=== PATIENT | male | born 1945 | race Caucasian/White ===

== ENCOUNTER 2017-01-21 11:27 | Outpatient (CLI) | payer OTHER ==
[2017-01-21] MEDS ORDERED: PROPOFOL/EMULSION 500 MG/50 ML BOTTLE IV ONE (11:51)
[2017-01-21] MEDS ORDERED: MIDAZOLAM 2 MG/2 ML VIAL ONE (11:51)
[2017-01-21] MEDS ORDERED: PROPOFOL 200 MG/20 ML VIAL ONE (11:51)
[2017-01-21] MEDS ORDERED: NALOXONE HCL 0.4 MG/ML INJ IVP PRN (14:54)
--- NOTE | 2017-01-21 14:54 | POSTANESTH ---
Post Anesthetic Evaluation Cardiovascular Status: Normal, Stable Level of Consciousness/Mental Status: Can Participate in Eval Pain Control: Adequate, Prn Tx Ordered Nausea/Vomiting Control: Adequate, Prn Tx Ordered Complications Possibly Related to Anesthesia: None Noted
[2017-01-21 15:18] VITALS: BP 142/80; O2SAT 91
[2017-01-21 15:19] VITALS: TEMP 97
[2017-01-21 16:13] VITALS: RESP 16
== END 2017-01-21 15:55 | disposition home or self-care (01) ==
LOC: FIMAGING 11:27
PROVIDERS: ATTEND Neurological Surgery
DX: M48.02 Spinal stenosis, cervical region (principal); G95.20 Unspecified cord compression; M50.81 Other cervical disc disorders, high cervical region; M47.26 Other spondylosis with radiculopathy, lumbar region; M46.97 Unspecified inflammatory spondylopathy, lumbosacral region; M51.17 Intervertebral disc disorders with radiculopathy, lumbosacral region; M46.96 Unspecified inflammatory spondylopathy, lumbar region
CPT/HCPCS: 72141; 72148; J2250; J2704

== ENCOUNTER 2017-03-10 07:25 | Observation (INO) | payer OTHER ==
--- NOTE | 2017-03-04 17:57 | GHP ---
[f rep st] HISTORY AND PHYSICAL DATE OF ADMISSION: 03/10/2017 HISTORY OF PRESENT ILLNESS: The patient is a 71-year-old male with constant neck pain. His neck di n is constant in nature and is increasing in intensity and severity. He has unsteadiness in ambulati ng, described as a drunk walk. He admits to urinary urgency and increased frequency. He has difficu lty sleeping at night due to the severity of his neck pain. He has tried heat, physical therapy, dry needling, steroid and NSAIDs without long-term relief. He has bilateral forearm numbness that began following a nerve block from a left shoulder surgery 7 years ago. He denies dropping objects. Admi ts to left lateral leg numbness, worse with ambulating, better with sitting and resting, improves whe n using a grocery cart. PAST MEDICAL HISTORY: Unremarkable. PAST SURGICAL HISTORY: Left rotator cuff repair, right upper lobectomy. FAMILY HISTORY: No pertinent neurosurgical family history. SOCIAL HISTORY: Admits to alcohol use with 1-2 beers daily. Admits to being a former smoker. He qu it 27 years ago. He did smoke 2 packs per day for 25 years. ALLERGIES: Latex. CURRENT MEDICATIONS: Nexium, amlodipine, lisinopril, atorvastatin, aspirin. REVIEW OF SYSTEMS: Negative except for HPI. PHYSICAL EXAM: Patient seen and examined, appears to be in no apparent distress. Mood and affect ar e appropriate. Alert and oriented. Pupils are equal and reactive. Extraocular movements are intact . Facial expression is symmetrical. Tongue is midline with protrusion. Hearing is grossly intact. Speech is fluent without any dysarthria. Muscle strength is well preserved in his upper and lower e xtremities. He has brisk reflexes and clonus on exam. ASSESSMENT AND PLAN: In summary, the patient is a 71-year-old male with neck pain, balance difficult ies, and upper extremity numbness. He has an MRI of the cervical spine that demonstrates severe cent ral canal narrowing and cord compression at the C3-4 level due to a diffuse broad-based disk bulge an d ligamentum flavum thickening. No cord edema or gliosis. Mild multilevel degenerative disk and fac et arthropathy. 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 We recommend surgical intervention given the degree of cord compression with an anterior cervical diskectomy and fusion at C3-4. The risks, benefits, proc edure and recovery process were discussed in detail. He will be in a soft collar following surgery f or approximately 6 weeks. He has elected to proceed with surgery and has signed consent. All questi ons and concerns were addressed and answered. /[id number]/MODL
[2017-03-10] MEDS ORDERED: ceFAZolin 2 GM/SWFI 2 GM/20 ML SYR IVP ONE (08:00)
[2017-03-10] MEDS ORDERED: ACETAMINOPHEN 500 MG TAB PO ONE (08:09)
[2017-03-10] MEDS ORDERED: LR 1,000 ML IV ONE (08:10)
[2017-03-10] MEDS ORDERED: SURGIFLO MATRIX KIT WITH THROMBIN 8ml TP ONE ×2 (08:32→11:47)
[2017-03-10] MEDS ORDERED: THROMBIN (BOVINE) 5,000 UNIT VIAL TP ONE (08:32)
[2017-03-10] MEDS ORDERED: CHLORHEXIDINE GLUC HIBICLENS 118 ML BTL TP ONE ×2 (08:32→09:50)
[2017-03-10] MEDS ORDERED: BUPIVACAINE 0.25% 30 ML SDV ONE (08:32)
[2017-03-10] MEDS ORDERED: BACITRACIN 50,000 UNITS/10 ML SYR IRR ONE (08:33)
--- NOTE | 2017-03-10 09:40 | PDHPUP ---
History & Physical Update H&P update statement: This history and physical update is based on an assessment of the patient which was completed after admission or registration (within 24 hours), but prior to the surgery/procedure. H&P update: H&P reviewed & patient examined, no change in patient's condition since H&P completed
[2017-03-10] MEDS ORDERED: MIDAZOLAM 2 MG/2 ML VIAL IVP ONE (09:45)
--- NOTE | 2017-03-10 09:47 | PDANEPAE ---
ANE History of Present Illness Patient presents for ACDF ANE Past Medical History - Cardiovascular History Hx Hypertension: Yes Hx Arrhythmias: No Hx Chest Pain: No Hx Coronary Artery / Peripheral Vascular Disease: No Hx CHF / Valvular Disease: No Hx Palpitations: No - Pulmonary History Hx COPD: No Hx Asthma/Reactive Airway Disease: No Hx Recent Upper Respiratory Infection: No Hx Oxygen in Use at Home: No Hx Sleep Apnea: No Sleep Apnea Screening Result - Last Documented: Positive Pulmonary History Comment: denies SOB-stage 1 lung CA - Neurologic History Hx Cerebrovascular Accident: No Hx Seizures: No Hx Dementia: No - Endocrine History Hx Diabetes: No - Renal History Hx Renal Disorders: No - Liver History Hx Hepatic Disorders: No - Neurological & Psychiatric Hx Hx Neurological and Psychiatric Disorders: No Neurological / Psychiatric History Comment: leg numbness since 10-19, chronic neck pain. Cervical stenosis w/myelopathy. Tingling, sl numbness-bilat forearms. - Cancer History Hx Cancer: Yes Cancer History Comment: Lung cancer - Congenital Disorder History Hx Congenital Disorders: No - GI History Hx Gastrointestinal Disorders: No Gastrointestinal History Comment: GERD-on Rx - Other Health History Other Health History: none - Chronic Pain History Chronic Pain: No - Surgical History Prior Surgeries: Lobectomy-2009. rotator cuff surgery- 2009. left thumb surgery-2013 ANE Review of Systems Review of Systems: - Exercise capacity METS (RN): 4 METS ANE Patient History - Allergies Allergies/Adverse Reactions: adhesive tape Allergy (Verified 03/08/17 15:51) Rash latex Allergy (Verified 03/10/17 08:55) CLEAR TAPE Allergy (Uncoded 03/08/17 15:51) Rash - Home Medications Home medications: home medication list seen and reviewed Home Medications: Aspirin [Aspirin 81mg (*)] 81 mg PO HS 01/18/17 [Last Taken 02/28/17 21:00] Atorvastatin Calcium [Lipitor 10 mg (*)] 10 mg PO HS 01/18/17 [Last Taken 21:00] Esomeprazole Magnesium [Nexium] 20 mg PO HS 01/18/17 [Last Taken 03/09/17 21:00] Lisinopril [Zestril 10 mg (*)] 10 mg PO HS 01/18/17 [Last Taken 03/09/17 21:00] amLODIPine BESYLATE [Norvasc 10 mg (*)] 10 mg PO HS 01/18/17 [Last Taken 21:00] - NPO status NPO Status: no food or drink >8 hours NPO Since - Liquids (Date): 03/09/17 NPO Since - Liquids (Time): 04:00 NPO Since - Solids (Date): 03/09/17 NPO Since - Solids (Time): 21:00 - Anes Hx Anes Hx: no prior problems - Smoking Hx Smoking Status: Never smoked - Family Anes Hx Family Hx Anesthesia Complications: None ANE Labs/Vital Signs - Vital Signs Blood Pressure: 158/84 Heart Rate: 80 Respiratory Rate: 16 O2 Sat (%): 98 Height: 182.88 cm Weight: 96.162 kg ANE Physical Exam - Airway Neck exam: decreased ROM Mallampati Score: Class 2 Mouth exam: normal dental/mouth exam - Pulmonary Pulmonary: no respiratory distress - Cardiovascular Cardiovascular: regular rate and rhythym - ASA Status ASA Status: II ANE Anesthesia Plan Anesthesia Plan: general endotracheal anesthesia Specialized Airway: video laryngoscope (RBA discussed)
[2017-03-10] MEDS ORDERED: MIDAZOLAM 2 MG/2 ML VIAL ONE (09:49)
[2017-03-10] MEDS ORDERED: PROPOFOL 200 MG/20 ML VIAL ONE (09:51)
[2017-03-10] MEDS ORDERED: fentaNYL 100 MCG/2 ML INJ ONE ×3 (09:51→13:49)
[2017-03-10] MEDS ORDERED: REMIFENTANIL HCL 1 MG VIAL ONE ×2 (09:51→11:46)
[2017-03-10] MEDS ORDERED: PROPOFOL/EMULSION 500 MG/50 ML BOTTLE IV ONE ×2 (09:51→11:51)
[2017-03-10] MEDS ORDERED: ROCURONIUM 50 MG/5 ML VIAL ONE (10:59)
[2017-03-10] MEDS ORDERED: DEXAMETHASONE 4 MG/ML VIAL ONE (10:59)
[2017-03-10] MEDS ORDERED: ONDANSETRON 4 MG/2 ML VIAL ONE (10:59)
[2017-03-10] MEDS ORDERED: LIDOCAINE 2% 5 ML SDV ONE (10:59)
[2017-03-10] MEDS ORDERED: SUGAMMADEX SODIUM 200 MG/2 ML VIAL IVP ONE (12:30)
[2017-03-10] MEDS ORDERED: fentaNYL 100 MCG/2 ML INJ IVP PRN (12:33)
[2017-03-10] MEDS ORDERED: ONDANSETRON 4 MG/2 ML VIAL IVP PRN ×2 (12:33→12:49)
[2017-03-10] MEDS ORDERED: NALOXONE HCL 0.4 MG/ML INJ IVP PRN (12:33)
[2017-03-10] MEDS ORDERED: OXYCODONE/APAP 5/325 TAB PO PRN (12:33)
[2017-03-10] MEDS ORDERED: HYDROCODONE/APAP 5/325 TAB PO PRN ×2 (12:33→12:51)
[2017-03-10] MEDS ORDERED: HYDROmorphONE/DILAUDID 1 MG/ML INJ IVP PRN (12:33)
[2017-03-10] MEDS ORDERED: LR 500 ML IV PRN (12:33)
[2017-03-10] MEDS ORDERED: MAGNESIUM HYDROXIDE 30 ML UDCUP PO PRN (12:49)
[2017-03-10] MEDS ORDERED: LACTULOSE 20 GM/30 ML UDCUP PO PRN (12:49)
[2017-03-10] MEDS ORDERED: BISACODYL 10 MG SUPP PR PRN (12:49)
[2017-03-10] MEDS ORDERED: POLYETHYLENE GLYCOL 3350 17 GM PKT PO PRN (12:49)
[2017-03-10] MEDS ORDERED: diphenhydrAMINE 25 MG CAP PO PRN (12:49)
[2017-03-10] MEDS ORDERED: ONDANSETRON DISINTEGRATING 4 MG TAB PO PRN (12:49)
[2017-03-10] MEDS ORDERED: NS W/ 20 KCl/L 1,000 ML IV SCH (13:00)
--- NOTE | 2017-03-10 13:21 | POSTOPPROG ---
Post Op Note Date of Operation: 03/10/17 Surgeon: Ml Lay Engineering Program Manager: Lavern Hartley PA-C Anesthesiologist: Dr. Salazar Anesthesia: GET(General Endotracheal) Pre-op Diagnosis: Cervical stenosis Post-op Diagnosis: Cervical stenosis Procedure: Anterior cervical discectomy and fusion at C3/4 Inf/Abcess present in the surg proc area at time of surgery?: No Depth: Deep Incisional (Fascial) EBL: 50-100 Drains: Tan Zeng Plan Plan: 71 yo male s/p ACDF C3/4 - neuro checks - soft collar, may remove for showering - DAVID drain x 1 - pain control - PT/OT/ST - postop C-spine x-rays pending Exam Awake. Alert Muscle strength full at 5/5 Sensation intact Incision with dressing c/d/i
--- NOTE | 2017-03-10 13:23 | POSTANESTH ---
Post Anesthetic Evaluation Cardiovascular Status: Similar to Pre-Op Cond Respiratory Status: Similar to Pre-op Cond. Level of Consciousness/Mental Status: Can Participate in Eval Pain Control: Adequate, Prn Tx Ordered Nausea/Vomiting Control: Adequate, Prn Tx Ordered Complications Possibly Related to Anesthesia: None Noted
--- NOTE | 2017-03-10 13:29 | GOP ---
[f rep st] OPERATIVE REPORT DATE OF OPERATION: 03/10/2017 SURGEON: Ml Lay DO NEUROSURGEON: Ml Lay D.O. FLOOR TRADER: Kailyn Hartley P.A.-C. PREOPERATIVE DIAGNOSIS: 1. Cervical spondylitic myelopathy. 2. Cervical stenosis. POSTOPERATIVE DIAGNOSIS: 1. Cervical spondylitic myelopathy. 2. Cervical stenosis. PROCEDURE PERFORMED: 1. C3-C4 anterior cervical diskectomy. 2. C3-C4 anterior cervical interbody fusion with LDR KEDAR-C 9 x 14 x 15 mm graft. 3. Autograft, allograft, microscope, neuromonitoring. FINDINGS: SPECIMENS: None. ESTIMATED BLOOD LOSS: 30 mL. INDICATIONS: This is a 71-year-old male with cervical spondylitic myelopathy secondary to disk osteo phyte complex at C3-C4, who elected to move forward with anterior cervical diskectomy and fusion. DESCRIPTION OF PROCEDURE: He was identified and consented. Sites were marked. He was brought to [facility] operating room and anesthetized under general endotracheal anesthesia. Pre positioning and post po sitioning baselines were performed. The head was placed in a Garcia horseshoe to a neutral positio n. Incision site was marked using lateral x-ray. He was prepped and draped in the usual sterile fas hion. Incision was anesthetized with 0.25% Marcaine with epinephrine. Incision was made with a 10 blade. Hemostasis was obtained with bipolar cautery, dissecting through the platysma with Metzenbaum scissors in a horizontal fashion. We then came along the appropriate av ascular plane, retracting the trachea and esophagus medially, palpating the carotid artery, retractin g it laterally with handheld Cloward, coming down on the anterior aspect of the spine, clearing the p revertebral fascia with Kittners, placing a bayoneted spinal needle, taking an x-ray verifying where the appropriate position was, marked the disk space with Bovie and then measured and placed Shadow-Li ne retractors. We brought the microscope in after having placed Dingle pins, verifying they were in good position under x-ray and placing the patient under distraction. We then used the high-speed dri ll to remove the disk and cartilaginous endplate from the disk space, coming down on the posterior lo ngitudinal ligament which was opened with an F1 upgoing curette. This was extended. The PLL was rat her scarred in. However, we were able to create a plane and opened this with one Kerrison. Then, us ing the 2 Koros, removed the disk and osteophyte from the superior and inferior endplates and out rosario ateral lateral foramina until foraminal fat was visualized. The patient was well decompressed. We harvested autograft superiorly and inferiorly until we had bleeding bone. Measured a 9 x 14 x 15. 5 mm LDR KEDAR-C graft using the trials and took an x-ray to verify we were in the appropriate position . Packed the trial with DBM and the patient's own bone and tamped it into place. We removed the Tin par pin superiorly and inferiorly and packed the holes with Gelfoam bullets using the long wings. We used the 1 impactor. Verified the wing was in good position superiorly. We cold welded with the 1, cold welded with the 2. Placed a long wing inferiorly. Verified it was in good position. Cold wel ded with the 1, cold welded with the 2 impactor. Shaved off one small corner of the graft that was p rominent slightly anterior and then copiously irrigated with over a liter of gentamicin infused salin e. Trocar to drain out inferiorly placed in the prevertebral space after meticulous hemostasis had been obtained. Removed the retractors. Removed the microscope. Inspected the lutz on the way out. Deana sed the subcutaneous layer with 2-0 Vicryl pop-offs, cutaneous layer with 3-0 Vicryl pop-offs and the skin was closed with a 4-0 running Monocryl and Steri-Strips. Drain was sutured with a 2-0 Vicryl p op-off. Study drug was placed in the prevertebral space. The drain was not placed to bulb suction a nd will be placed to bulb suction in the PACU. Wound dressed with gauze and Tegaderm. Neuro monitoring was stable throughout. The patient tolerated the procedure well. FLUIDS REPLACED: 1 L crystalloid. URINE OUTPUT: None. DRAINS: One J-P in the prevertebral space to bulb suction. COMPLICATIONS: None. /[id number]/MODL
[2017-03-10] MEDS ORDERED: HYDROmorphONE/DILAUDID 1 MG/ML INJ ONE (13:55)
[2017-03-10] MEDS: ACETAMINOPHEN 500 MG TAB PO SCH ×2 (15:04→22:35)
[2017-03-10] MEDS: ceFAZolin 2 GM/DEXTROSE 100 ML IV SCH (17:47)
[2017-03-10] MEDS: CYCLOBENZAPRINE 10 MG TAB PO PRN (17:47)
[2017-03-10] MEDS ORDERED: PANTOPRAZOLE SODIUM 40 MG TAB PO SCH (21:00)
[2017-03-10] MEDS ORDERED: LISINOPRIL 10 MG TAB PO SCH (21:00)
[2017-03-10] MEDS ORDERED: ATORVASTATIN CALCIUM 10 MG TAB PO SCH (21:00)
[2017-03-10] MEDS: FAMOTIDINE 20 MG TAB PO SCH (22:38)
[2017-03-10] MEDS: SENNOSIDES/DOCUSATE SODIUM TAB PO SCH (22:39)
[2017-03-11] MEDS: CYCLOBENZAPRINE 10 MG TAB PO PRN (02:40)
[2017-03-11] MEDS: ceFAZolin 2 GM/DEXTROSE 100 ML IV SCH (02:40)
[2017-03-11 04:18] VITALS: O2SAT 94
[2017-03-11] MEDS: ACETAMINOPHEN 500 MG TAB PO SCH ×2 (05:35→10:28)
[2017-03-11 07:33] VITALS: BP 143/74; PULSE 81; RESP 16; TEMP 97.7
--- NOTE | 2017-03-11 08:25 | NEUSURGPN ---
Date of Surgery: 03/10/17 Post Op Day: 1 Assessment/Plan: 71 yo male s/p ACDF C3/4 POD#1 - soft collar, may remove for showering - Will dc DAVID today -Patient may dc home today after DAVID removed, evaluation by Speech Therapy and post op xrays complete - has prescriptions to fill - PT/OT/ST - postop C-spine x-rays pending -Dr Lay saw patient this morning as well Subjective: Patient doing well, denies any swallowing difficulties Objective: Awake. Alert Muscle strength full at 5/5 Sensation intact Incision with dressing c/d/i Neuro Check Frequency: per routine Urinary Catheter in Place: No - Physician Discussed Patient with : Rosanne Patient Seen by : Rosanne Neurosurgery Physical Exam - Vitals, I&O, Labs I and O 03/10/17 03/11/17 03/12/17 05:59 05:59 05:59 Intake Total 2270 400 Output Total 225 15 Balance 2045 385 Weight 96.162 kg Intake: Oral (ml) 770 400 IV Intake (ml) 1400 IV Infused (ml) 100 ceFAZolin 2 GM/DEXTROSE 100 100 ml @ 200 mls/hr IV Q8H CHRISTINE Rx#:[id number] Output: Urine (ml) 225 Toilet 225 DAVID Drain Output (ml) 15 #1 15 Other: Intake Quantity Yes Sufficient Number of Voids Toilet 1 Vital Signs Temp Pulse Resp BP Pulse Ox 36.5 C 81 16 143/74 H 94 03/11/17 07:32 03/11/17 07:32 03/11/17 07:32 03/11/17 07:32 03/11/17 07:32 ICD10 Worksheet Patient Problems: Problems Problem Status Onset Cervical spinal stenosis Acute - ICD10 Problem Qualifiers (1) Cervical spinal stenosis
[2017-03-11] MEDS: SENNOSIDES/DOCUSATE SODIUM TAB PO SCH (08:29)
[2017-03-11] MEDS: FAMOTIDINE 20 MG TAB PO SCH (08:29)
--- NOTE | 2017-03-11 10:28 | ASMTCMCOM ---
CM Note CM Note Notes: Pt medically stable for d/c, PT/OT/PRODUCTIVITY ENGINEER clear pt for home. No CM d/c needs identified. Date Signed: 03/11/2017 10:28 AM Electronically Signed By:JAQUI Steven
--- NOTE | 2017-03-11 11:23 | ASDISCHSUM ---
Discharge Information Plan Status:Home with No Needs Medically Cleared to Leave: Discharge Date:03/11/2017 11:15 AM D/C [facility]position:[facility] ADT D/C Disposition:Home, Routine, Self-Care Projected Discharge Date:03/11/2017 11:15 AM Transportation at D/C: Discharge Delay Reason: Follow-Up Date:03/11/2017 11:15 AM Discharge Slot: Final Diagnosis: Placement Information Patient Contact Information Contact Name:LAYO Relationship: Address:[address] City:[place] Phone: [facility]/Zip Code:[place] [address] Email: Financial Information Financial Class: Primary Plan Desc:MEDICARE OUTPATIENT Primary Plan Number:[id number] Secondary Plan Desc:JOAN Magdaleno [facility] Secondary Plan Number:[id number] Assessment Information [facility] CM Progress Note CM Note CM Note Notes: Pt medically stable for d/c, PT/OT/TAX EXAMINER clear pt for home. No CM d/c needs identified. Date Signed: 03/11/2017 10:28 AM Electronically Signed By:JAQUI Steven Intervention Information
[2017-03-13] MEDS ORDERED: ENOXAPARIN 40 MG/0.4 ML SYR SC SCH (09:00)
== END 2017-03-11 11:15 | disposition home or self-care (01) ==
LOC: F3N 07:25
PROVIDERS: ADMIT Neurological Surgery; ATTEND Neurological Surgery
PROC: 8E0WXBZ Computer Assisted Procedure of Trunk Region (ICD-10-PCS; principal; 2017-03-10 10:15)
PROC: 0RB10ZZ Excision of Cervical Vertebral Joint, Open Approach (ICD-10-PCS; principal; 2017-03-10 10:15)
PROC: 0RG1070 Fusion of Cervical Vertebral Joint with Autologous Tissue Substitute, Anterior Approach, Anterior Column, Open Approach (ICD-10-PCS; principal; 2017-03-10 10:15)
PROC: 4A10X4G Monitoring of Central Nervous Electrical Activity, Intraoperative, External Approach (ICD-10-PCS; principal; 2017-03-10 10:15)
PROC: 0RT30ZZ Resection of Cervical Vertebral Disc, Open Approach (ICD-10-PCS; principal; 2017-03-10 10:15)
DX: M47.12 Other spondylosis with myelopathy, cervical region (principal); M48.02 Spinal stenosis, cervical region; K21.9 Gastro-esophageal reflux disease without esophagitis; E78.5 Hyperlipidemia, unspecified; I10 Essential (primary) hypertension; N40.1 Benign prostatic hyperplasia with lower urinary tract symptoms; R39.15 Urgency of urination; R35.0 Frequency of micturition; Z85.118 Personal history of other malignant neoplasm of bronchus and lung; Z85.820 Personal history of malignant melanoma of skin; Z90.2 Acquired absence of lung [part of]; Z87.891 Personal history of nicotine dependence
CPT/HCPCS: 22551; 72040; 76001; 92610; 97161; 97165; C1713; G8978; G8979; G8980; G8987; G8988; G8989; G8996; G8997; J0171; J0690; J1100; J1170; J2250; J2405; J2704; J3010

== ENCOUNTER → 2017-04-20 | Outpatient (CLI) | payer OTHER | LOC: CIMAGING 07:55 | PROVIDERS: ATTEND Neurological Surgery | DX: M47.12 Other spondylosis with myelopathy, cervical region (principal) | CPT/HCPCS: 72040-PO ==

== ENCOUNTER → 2017-06-07 | Outpatient (CLI) | payer OTHER | LOC: CIMAGING 07:50 | PROVIDERS: ATTEND Neurological Surgery | DX: Z98.1 Arthrodesis status (principal) | CPT/HCPCS: 72040-PO ==

== ENCOUNTER → 2017-09-03 | Outpatient (CLI) | payer OTHER | LOC: CIMAGING 12:58 | PROVIDERS: ATTEND Physician Assistant Surgical | DX: Z09 Encounter for follow-up examination after completed treatment for conditions other than malignant neoplasm (principal); Z98.1 Arthrodesis status | CPT/HCPCS: 72040-PO ==

== ENCOUNTER → 2018-03-07 | Outpatient (CLI) | payer OTHER | LOC: CIMAGING 07:57 | PROVIDERS: ATTEND Physician Assistant Surgical | DX: Z09 Encounter for follow-up examination after completed treatment for conditions other than malignant neoplasm (principal); Z98.1 Arthrodesis status | CPT/HCPCS: 72040-PO ==

== ENCOUNTER → 2018-08-01 | Outpatient (CLI) | payer OTHER | LOC: CIMAGING 12:18 | PROVIDERS: ATTEND Family Medicine | DX: M51.86 Other intervertebral disc disorders, lumbar region (principal) | CPT/HCPCS: 72100-PO ==

== ENCOUNTER → 2018-08-05 | Outpatient (CLI) | payer OTHER ==
[~2018-08-05] MED LIST: IOPAMIDOL (ISOVUE-300) 100 ML BTL ONE
== END ==
LOC: CIMAGING 10:15
PROVIDERS: ATTEND Family Medicine
DX: M48.54XA Collapsed vertebra, not elsewhere classified, thoracic region, initial encounter for fracture (principal); K38.8 Other specified diseases of appendix
CPT/HCPCS: 74178; Q9967